=== PATIENT | male | born 1935 | race Caucasian/White ===

== ENCOUNTER 2016-07-04 22:42 | Inpatient (IN) | payer MEDICARE, BC ==
[~2016-07-04] VITALS: Wt 115.1 kg
[2016-07-05] MEDS ORDERED: TYLENOL 500MG500 MG PO (00:18)
[2016-07-05] MEDS ORDERED: FISH OIL 1000MG1 CAP PO (00:19)
[2016-07-05] MEDS ORDERED: MEVACOR40 MG PO (00:20)
[2016-07-05] MEDS ORDERED: MULTI VITAMINS1 TAB PO (00:21)
[2016-07-05] MEDS ORDERED: SYNTHROID0.075 MG/T PO (00:21)
[2016-07-05] MEDS ORDERED: ASPIRIN 81M81 MG/TA2 PO (00:23)
[2016-07-05] MEDS ORDERED: COZAAR 25MG25 MG/TAB PO (00:23)
[2016-07-05] MEDS ORDERED: IMDUR 60MG60 MG/TAB PO (00:24)
[2016-07-05] MEDS ORDERED: DIABETA 5MG5 MG/TAB PO (00:25)
[2016-07-05] MEDS ORDERED: GLUCOPHAGE500 MG/TAB PO (00:25)
[2016-07-05 01:23] VITALS: BP 133/74; PULSE 64; TEMP 98.5
[2016-07-05 04:11] VITALS: BP 140/92; PULSE 58; TEMP 98.2
[2016-07-05 07:51] LABS: BASO % 0.5 % (0.0-2.0); EOS # 0.1 (0.0-0.7); EOS % 2.3 % (0-4.0); GRAN # 2.8 (1.4-6.5); GRAN % 64.4 % (42.2-75.2); LYMPH # 0.9 (1.2-3.4); LYMPH % 20.5 % (20.0-51.0); MEAN CELL VOLUME 94 fl (80.0-100.0); MEAN CORPUSCULAR HEMOGLOBIN 31 pg (27.0-31.0); MEAN CORPUSCULAR HGB CONC 33 g/dl (33.0-37.0); MEAN PLATELET VOLUME 8.8 fl (7.4-10.4); MONO # 0.5 (0.1-0.6); MONO % 12.1 % (1.7-9.3); PLATELET COUNT 246 K/mm3 (130-400); RED BLOOD COUNT 3.89 M/mm3 (4.20-5.60); REDCELL DISTRIBUTION WIDTH-CV 12.7 % (11.5-14.5); WHITE BLOOD COUNT 4.4 K/mm3 (4.8-10.8)
[2016-07-05 07:58] LABS: HEMATOCRIT 36.4 % (42.0-52.0)
[2016-07-05 08:35] VITALS: BP 108/63; PULSE 64; TEMP 97.6
[2016-07-05 09:40] LABS: ADJUSTED CALCIUM 9.3 mg/dL (8.4-10.2); ALBUMIN 3.7 gm/dL (3.5-5.0); BILIRUBIN,TOTAL 0.8 mg/dL (0.0-1.0); CALCIUM 9.1 mg/dL (8.4-10.2); CREATININE, serum 1.11 mg/dL (0.66-1.25); POTASSIUM 4.2 mmol/L (3.4-5.0)
[2016-07-05 11:50] VITALS: BP 120/61; PULSE 62; TEMP 97.5
[2016-07-05 15:38] VITALS: BP 130/64; PULSE 60; TEMP 98.2
[2016-07-05 21:27] VITALS: BP 129/52; PULSE 53; TEMP 97.7
[2016-07-06 01:35] VITALS: BP 132/50; PULSE 61; TEMP 98.5
[2016-07-06 05:36] VITALS: BP 128/66; PULSE 62; TEMP 97.8
[2016-07-06 07:41] VITALS: BP 125/54; PULSE 59; TEMP 97.9
[2016-07-06 12:37] VITALS: BP 125/64; PULSE 62
[2016-07-06 13:11] LABS: FACTOR V LEIDEN MUTATION B Heterozygous (Negative)
[2016-07-06] MEDS ORDERED: LOVENOX 100100 MG/ML SQ (13:35)
[2016-07-08 10:40] LABS: PROTEIN C ACTIVITY 85 % (70-150)
[2016-07-08 10:43] LABS: PROTEIN S ACTIVITY 95 % (65-149)
[2016-07-08 17:54] LABS: .ANTICARDIOLIPIN IGG <9.4 GPL (()); .ANTICARDIOLIPIN IGM <9.4 MPL (())
[2016-07-09 11:01] LABS: LUPUS ANTICOAGULANT INR 1.1 (()); LUPUS ANTICOAGULANT PTT 33 sec (26 - 36)
== END 2016-07-06 14:25 | disposition home or self-care (01) | DRG 299 ==
LOC: MEDICAL 22:42
PROVIDERS: Internal Medicine
DX: I82.431 Acute embolism and thrombosis of right popliteal vein (principal); I26.99 Other pulmonary embolism without acute cor pulmonale; I82.411 Acute embolism and thrombosis of right femoral vein; E11.40 Type 2 diabetes mellitus with diabetic neuropathy, unspecified; R26.81 Unsteadiness on feet; E03.9 Hypothyroidism, unspecified; J44.9 Chronic obstructive pulmonary disease, unspecified; E66.9 Obesity, unspecified; Z96.651 Presence of right artificial knee joint; Z95.1 Presence of aortocoronary bypass graft; Z85.46 Personal history of malignant neoplasm of prostate; Z91.81 History of falling; Z79.4 Long term (current) use of insulin
CPT/HCPCS: 99223-AI; 99238; G0103; J1650

== ENCOUNTER → 2016-07-22 | Outpatient (CLI) | payer MEDICARE, BC ==
[~2016-07-22] MED LIST: AREDS PO; ASPIRIN 81M81 MG/TA2 PO; CITRUCEL POWDE850 GM PO; COLACE 100100 MG/CAP PO; COZAAR 25MG25 MG/TAB PO; DIABETA 5MG5 MG/TAB PO; ELIQUIS 5MG PO; EPA FISH OIL1 SGL PO; FISH OIL 1000MG1 CAP PO; GLUCOPHAGE500 MG/TAB PO; IMDUR 60MG60 MG/TAB PO; LOVENOX 100100 MG/ML SQ; MEVACOR40 MG PO; MULTI VITAMINS1 TAB PO; NORCO 5/325 PO; PRESERVISION1 SGL PO; ROXICODONE 55 MG/TAB PO; SYNTHROID0.075 MG/T PO; TYLENOL 500MG500 MG PO
== END ==
LOC: COL.RAD 10:26
DX: K57.32 Diverticulitis of large intestine without perforation or abscess without bleeding (principal); K63.89 Other specified diseases of intestine
CPT/HCPCS: Q9967

== ENCOUNTER 2016-08-19 11:53 | Inpatient (IN) | payer MEDICARE, BC ==
[~2016-08-19] VITALS: Ht 190.5 cm; Wt 114.2 kg
[~2016-08-19 11:53] MED LIST changes: -AREDS PO; -CITRUCEL POWDE850 GM PO; -COLACE 100100 MG/CAP PO; -ELIQUIS 5MG PO; -EPA FISH OIL1 SGL PO; -NORCO 5/325 PO; -PRESERVISION1 SGL PO; -ROXICODONE 55 MG/TAB PO
[2016-09-03] VITALS (10 sets, daily range): BP systolic 111–156; BP diastolic 58–86; PULSE 58–73; TEMP 97.2
[2016-09-03] MEDS ORDERED: GLUCOPHAGE500 MG/TAB PO (11:40)
[2016-09-03] MEDS ORDERED: DIABETA 5MG5 MG/TAB PO (11:41)
[2016-09-03] MEDS ORDERED: MEVACOR40 MG PO (11:42)
[2016-09-03] MEDS ORDERED: IMDUR 60MG60 MG/TAB PO (11:46)
[2016-09-03] MEDS ORDERED: SYNTHROID0.075 MG/T PO (11:46)
[2016-09-03] MEDS ORDERED: EPA FISH OIL1 SGL PO (11:47)
[2016-09-03] MEDS ORDERED: MULTI VITAMINS1 TAB PO (11:57)
[2016-09-03] MEDS ORDERED: TYLENOL 500MG500 MG PO (11:58)
[2016-09-03] MEDS ORDERED: AREDS PO (11:59)
[2016-09-03] MEDS ORDERED: COZAAR 25MG25 MG/TAB PO (11:59)
[2016-09-03] MEDS ORDERED: ELIQUIS 5MG PO (12:02)
[2016-09-03] MEDS ORDERED: CITRUCEL POWDE850 GM PO (12:03)
[2016-09-03 12:16] LABS: CALCIUM 8.9 mg/dL (8.4-10.2); CREATININE, serum 1.09 mg/dL (0.66-1.25); POTASSIUM 4.4 mmol/L (3.4-5.0)
[2016-09-04 06:32] VITALS: BP 119/54; PULSE 63; TEMP 98.5
[2016-09-04 08:08] LABS: HEMATOCRIT 35.4 % (42.0-52.0); HEMOGLOBIN 11.5 g/dl (13.5-18.0)
[2016-09-04 08:28] LABS: CALCIUM 7.6 mg/dL (8.4-10.2); CREATININE, serum 1.26 mg/dL (0.66-1.25); POTASSIUM 4.4 mmol/L (3.4-5.0)
[2016-09-04 10:28] VITALS: BP 120/53; PULSE 58; TEMP 97.9
[2016-09-04 14:02] VITALS: BP 116/51; PULSE 64; TEMP 97.7
[2016-09-04 18:00] VITALS: BP 126/62; PULSE 64; TEMP 98.7
[2016-09-04 21:52] VITALS: BP 118/53; PULSE 68; TEMP 98.5
[2016-09-05 01:29] VITALS: BP 151/65; PULSE 87; TEMP 98.3
[2016-09-05 05:22] VITALS: BP 151/71; PULSE 61; TEMP 98.3
[2016-09-05 07:19] LABS: HEMATOCRIT 32.7 % (42.0-52.0); HEMOGLOBIN 10.6 g/dl (13.5-18.0)
[2016-09-05 07:24] LABS: CALCIUM 7.9 mg/dL (8.4-10.2); CREATININE, serum 1.05 mg/dL (0.66-1.25); POTASSIUM 4.1 mmol/L (3.4-5.0)
[2016-09-05 11:27] VITALS: BP 127/60; PULSE 58; TEMP 97.6
[2016-09-05 13:46] VITALS: BP 121/65; PULSE 68; TEMP 98.3
[2016-09-05 17:19] VITALS: BP 113/57; PULSE 65; TEMP 98
[2016-09-05 21:46] VITALS: BP 132/69; PULSE 67; TEMP 97.8
[2016-09-06 05:10] VITALS: BP 125/63; PULSE 70; TEMP 97.7
[2016-09-06 07:19] LABS: HEMATOCRIT 32.1 % (42.0-52.0); HEMOGLOBIN 10.6 g/dl (13.5-18.0)
[2016-09-06 07:30] LABS: CALCIUM 8.1 mg/dL (8.4-10.2); CREATININE, serum 0.91 mg/dL (0.66-1.25); POTASSIUM 4.3 mmol/L (3.4-5.0)
[2016-09-06 09:47] VITALS: BP 166/66; PULSE 68; TEMP 97.4
[2016-09-06 14:22] VITALS: BP 122/68; PULSE 92; TEMP 97.4
[2016-09-06 17:39] VITALS: BP 122/57; PULSE 71; TEMP 98.3
[2016-09-06 21:39] VITALS: BP 123/60; PULSE 71; TEMP 97.8
[2016-09-07 05:42] VITALS: BP 141/85; PULSE 58; TEMP 98.4
[2016-09-07 10:15] VITALS: BP 115/72; PULSE 69; TEMP 98.1
[2016-09-07] MEDS ORDERED: ROXICODONE 55 MG/TAB PO (14:25)
[2016-09-07] MEDS ORDERED: COLACE 100100 MG/CAP PO (14:26)
== END 2016-09-07 15:15 | disposition home or self-care (01) | DRG 330 ==
LOC: SURG 09-03 09:45 → INPTSU 09-03 09:45 → SURG 09-03 12:00
PROVIDERS: Nurse Anesthetist, Certified Registered; Surgery
PROC: 8E0W4CZ Robotic Assisted Procedure of Trunk Region, Percutaneous Endoscopic Approach (ICD-10-PCS; 2016-09-03)
PROC: 0DTL4ZZ Resection of Transverse Colon, Percutaneous Endoscopic Approach (ICD-10-PCS; principal; 2016-09-03 12:00)
DX: C18.4 Malignant neoplasm of transverse colon (principal); C77.2 Secondary and unspecified malignant neoplasm of intra-abdominal lymph nodes; I25.10 Atherosclerotic heart disease of native coronary artery without angina pectoris; Z95.1 Presence of aortocoronary bypass graft; Z86.711 Personal history of pulmonary embolism; Z79.01 Long term (current) use of anticoagulants; E11.9 Type 2 diabetes mellitus without complications
CPT/HCPCS: A4315; A9284; J0690; J1170; J1644; J2270; J2405; J2704; J2710; J3010; J7030

== ENCOUNTER 2016-09-27 05:54 | Day surgery (SDC) | payer MEDICARE, BC ==
[~2016-09-27] VITALS: Ht 190.5 cm; Wt 111.5 kg
[~2016-09-27 05:54] MED LIST changes: +AREDS PO; +CITRUCEL POWDE850 GM PO; +COLACE 100100 MG/CAP PO; +ELIQUIS 5MG PO; +EPA FISH OIL1 SGL PO; +ROXICODONE 55 MG/TAB PO
[2016-09-27 06:45] VITALS: BP 136/71; PULSE 61; TEMP 98.4
[2016-09-27] MEDS ORDERED: PRESERVISION1 SGL PO (06:56)
[2016-09-27 09:21] VITALS: BP 116/65; PULSE 69; TEMP 97.2
[2016-09-27 09:36] VITALS: BP 120/64; PULSE 62
[2016-09-27 09:51] VITALS: BP 108/64; PULSE 73
[2016-09-27] MEDS ORDERED: NORCO 5/325 PO (09:55)
[2016-09-27 10:06] VITALS: BP 115/70; PULSE 64
== END 2016-09-27 10:45 | disposition home or self-care (01) ==
LOC: SDCO 05:54
DX: C18.4 Malignant neoplasm of transverse colon (principal); C77.2 Secondary and unspecified malignant neoplasm of intra-abdominal lymph nodes; Z90.49 Acquired absence of other specified parts of digestive tract; M19.90 Unspecified osteoarthritis, unspecified site; I25.10 Atherosclerotic heart disease of native coronary artery without angina pectoris; Z95.1 Presence of aortocoronary bypass graft; I10 Essential (primary) hypertension; E11.40 Type 2 diabetes mellitus with diabetic neuropathy, unspecified; E03.9 Hypothyroidism, unspecified; Z86.711 Personal history of pulmonary embolism; Z86.718 Personal history of other venous thrombosis and embolism; Z90.79 Acquired absence of other genital organ(s)
CPT/HCPCS: C1788; J0690; J1644; J2704; J3010; J7030

== ENCOUNTER 2017-06-05 15:37 | Inpatient (IN) | payer MEDICARE, BC ==
[~2017-06-05] VITALS: Ht 188 cm; Wt 96.0 kg
[~2017-06-05 15:37] MED LIST changes: +LOMOTIL 0.025 M1 TAB PO; +NORCO 5/325 PO; +PRESERVISION1 SGL PO
[2017-06-18] VITALS (12 sets, daily range): BP systolic 94–143; BP diastolic 50–67; PULSE 42–73; TEMP 96.9–98.6
[2017-06-18] MEDS ORDERED: MAGNESIUM250 M1 PO (07:24)
[2017-06-18] MEDS ORDERED: ICAPS AREDS FO1 EACH PO (07:26)
[2017-06-18] MEDS ORDERED: ULTRAM 50MG TAB50 MG PO (07:26)
[2017-06-18] MEDS ORDERED: TYLENOL PM EXTR1 TA1 PO (07:27)
[2017-06-19] VITALS (7 sets, daily range): BP systolic 102–117; BP diastolic 48–59; PULSE 63–75; TEMP 97.5–98.7
[2017-06-19 07:59] LABS: HEMATOCRIT 30.5 % (42.0-52.0); HEMOGLOBIN 9.8 g/dl (13.5-18.0)
[2017-06-19 08:03] LABS: CREATININE, serum 1.24 mg/dL (0.66-1.25)
[2017-06-20 01:38] VITALS: BP 113/61; PULSE 77; TEMP 97.9
[2017-06-20 05:09] VITALS: BP 110/62; PULSE 73; TEMP 98.2
[2017-06-20 10:26] VITALS: BP 128/62; PULSE 77; TEMP 97.6
[2017-06-20 13:18] VITALS: BP 115/56; PULSE 70; TEMP 97.9
[2017-06-20 17:47] VITALS: BP 134/52; PULSE 75; TEMP 98.3
[2017-06-20 22:15] VITALS: BP 105/58; PULSE 69; TEMP 97.8
[2017-06-21 02:07] VITALS: BP 124/65; PULSE 66; TEMP 97.6
[2017-06-21 04:57] VITALS: BP 127/59; PULSE 70; TEMP 97.8
[2017-06-21 09:35] VITALS: BP 132/61; PULSE 76; TEMP 98.3
[2017-06-21 13:38] VITALS: BP 128/67; PULSE 71; TEMP 97.9
[2017-06-21 16:58] VITALS: BP 135/62; PULSE 70; TEMP 97.5
[2017-06-21 21:37] VITALS: BP 146/74; PULSE 72; TEMP 97.6
[2017-06-22 02:51] VITALS: BP 153/83; PULSE 79; TEMP 97.9
[2017-06-22 05:28] VITALS: BP 164/86; PULSE 89; TEMP 97.9
[2017-06-22 08:17] LABS: BASO % 0.3 % (0.0-2.0); GRAN # 2.9 (1.4-6.5); GRAN % 83.7 % (42.2-75.2); LYMPH # 0.2 (1.2-3.4); LYMPH % 4.6 % (20.0-51.0); MEAN CELL VOLUME 94 fl (80.0-100.0); MEAN CORPUSCULAR HGB CONC 32 g/dl (33.0-37.0); MEAN PLATELET VOLUME 8.9 fl (7.4-10.4); MONO # 0.4 (0.1-0.6); MONO % 11.1 % (1.7-9.3); PLATELET COUNT 195 K/mm3 (130-400); RED BLOOD COUNT 3.71 M/mm3 (4.20-5.60); REDCELL DISTRIBUTION WIDTH-CV 13.3 % (11.5-14.5)
[2017-06-22 08:19] LABS: HEMOGLOBIN 11.3 g/dl (13.5-18.0); MEAN CORPUSCULAR HEMOGLOBIN 30 pg (27.0-31.0)
[2017-06-22 08:36] LABS: CALCIUM 8.8 mg/dL (8.4-10.2); CREATININE, serum 0.94 mg/dL (0.66-1.25); POTASSIUM 3.9 mmol/L (3.4-5.0)
[2017-06-22 09:54] VITALS: BP 178/75; PULSE 73; TEMP 98.4
[2017-06-22 13:51] VITALS: BP 162/67; PULSE 76; TEMP 98
[2017-06-22 17:51] VITALS: BP 142/60; PULSE 72; TEMP 97.2
[2017-06-22 22:39] VITALS: BP 148/73; PULSE 79; TEMP 97.8
[2017-06-23] VITALS (188 sets, daily range): BP systolic 125–168; BP diastolic 65–83; PULSE 66–80; TEMP 97.4–98; O2SAT 88–100
[2017-06-23 06:28] LABS: MEAN CELL VOLUME 95 fl (80.0-100.0); MEAN CORPUSCULAR HGB CONC 33 g/dl (33.0-37.0); MEAN PLATELET VOLUME 9.1 fl (7.4-10.4); PLATELET COUNT 184 K/mm3 (130-400); RED BLOOD COUNT 3.61 M/mm3 (4.20-5.60); REDCELL DISTRIBUTION WIDTH-CV 13.2 % (11.5-14.5)
[2017-06-23 06:34] LABS: HEMATOCRIT 34.2 % (42.0-52.0); HEMOGLOBIN 11.1 g/dl (13.5-18.0); MEAN CORPUSCULAR HEMOGLOBIN 31 pg (27.0-31.0)
[2017-06-23 06:42] LABS: BILIRUBIN,TOTAL 0.5 mg/dL (0.0-1.0); CALCIUM 8.5 mg/dL (8.4-10.2); CREATININE, serum 1.03 mg/dL (0.66-1.25); PHOSPHOROUS 1.7 mg/dL (2.5-4.5); POTASSIUM 3.6 mmol/L (3.4-5.0); TOTAL PROTEIN 5.9 gm/dL (6.4-8.2)
[2017-06-23 06:49] LABS: PRE ALBUMIN 8.7 mg/dL (17.6-36.0)
[2017-06-23 07:06] LABS: BAND 55 % (0-10); LYMPHOCYTE 3 % (20.0-51.0); NEUTROPHILS 23 % (42.0-75.2)
[2017-06-23 07:07] LABS: ANISOCYTOSIS 1+; PLATELET ESTIMATE NORMAL (NORMAL)
[2017-06-23 22:31] LABS: BASO % 0.4 % (0.0-2.0); GRAN # 2.2 (1.4-6.5); GRAN % 85.7 % (42.2-75.2); LYMPH # 0.1 (1.2-3.4); LYMPH % 3.6 % (20.0-51.0); MEAN CELL VOLUME 94 fl (80.0-100.0); MEAN CORPUSCULAR HGB CONC 33 g/dl (33.0-37.0); MEAN PLATELET VOLUME 8.8 fl (7.4-10.4); MONO # 0.2 (0.1-0.6); MONO % 9.5 % (1.7-9.3); PLATELET COUNT 161 K/mm3 (130-400); RED BLOOD COUNT 3.53 M/mm3 (4.20-5.60); REDCELL DISTRIBUTION WIDTH-CV 13.2 % (11.5-14.5)
[2017-06-23 22:33] LABS: HEMATOCRIT 33.1 % (42.0-52.0); HEMOGLOBIN 10.8 g/dl (13.5-18.0); MEAN CORPUSCULAR HEMOGLOBIN 31 pg (27.0-31.0)
[2017-06-23 22:42] LABS: ALBUMIN 2.7 gm/dL (3.5-5.0); BILIRUBIN,TOTAL 0.5 mg/dL (0.0-1.0); CALCIUM 7.9 mg/dL (8.4-10.2); CREATININE, serum 1.01 mg/dL (0.66-1.25); MAGNESIUM 1.9 mg/dL (1.6-2.3); POTASSIUM 3.6 mmol/L (3.4-5.0); TOTAL PROTEIN 5.5 gm/dL (6.4-8.2)
[2017-06-23 22:47] LABS: ARTERIAL BLD GAS O2 SATURATION 91.9 % (92-100); ARTERIAL BLD GAS TCO2 CT 34.6; ARTERIAL BLOOD GAS BASE EXCESS 8.3 (-2-2); ARTERIAL BLOOD GAS HCO3 33.1 meq/L (22-26); ARTERIAL BLOOD GAS PO2 62.5 mmHg (80-100); ARTERIAL BLOOD GAS pH 7.47 (7.35-7.45)
[2017-06-23 23:12] LABS: TSH w REFLEX 2.89 uIU/mL (0.465-4.680)
[2017-06-24] VITALS (1282 sets, daily range): BP systolic 115–157; BP diastolic 1–91; PULSE 71–78; TEMP 97.1–98.5; O2SAT 81–100
[2017-06-24 06:26] LABS: CALCIUM 7.7 mg/dL (8.4-10.2); CREATININE, serum 1.06 mg/dL (0.66-1.25); PHOSPHOROUS 2.5 mg/dL (2.5-4.5); POTASSIUM 3.7 mmol/L (3.4-5.0)
[2017-06-24 09:35] LABS: MEAN CELL VOLUME 96 fl (80.0-100.0); MEAN CORPUSCULAR HGB CONC 32 g/dl (33.0-37.0); MEAN PLATELET VOLUME 9.7 fl (7.4-10.4); PLATELET COUNT 183 K/mm3 (130-400); RED BLOOD COUNT 3.36 M/mm3 (4.20-5.60); REDCELL DISTRIBUTION WIDTH-CV 13.3 % (11.5-14.5)
[2017-06-24 09:36] LABS: HEMATOCRIT 32.3 % (42.0-52.0); HEMOGLOBIN 10.2 g/dl (13.5-18.0); MEAN CORPUSCULAR HEMOGLOBIN 30 pg (27.0-31.0)
[2017-06-24 14:12] LABS: BAND 54 % (0-10); LYMPHOCYTE 12 % (20.0-51.0); METAMYELOCYTE 2 % (0-0); NEUTROPHILS 31 % (42.0-75.2); PLATELET ESTIMATE NORMAL (NORMAL)
[2017-06-24 14:13] LABS: HYPOCHROMIA 1+
[2017-06-25] VITALS (653 sets, daily range): BP systolic 130–165; BP diastolic 41–78; PULSE 60–75; TEMP 97.2–98.1; O2SAT 65–100
[2017-06-25 05:45] LABS: MEAN CELL VOLUME 97 fl (80.0-100.0); MEAN CORPUSCULAR HGB CONC 31 g/dl (33.0-37.0); MEAN PLATELET VOLUME 9.3 fl (7.4-10.4); PLATELET COUNT 172 K/mm3 (130-400); RED BLOOD COUNT 3.29 M/mm3 (4.20-5.60); REDCELL DISTRIBUTION WIDTH-CV 13.2 % (11.5-14.5)
[2017-06-25 05:46] LABS: HEMATOCRIT 31.8 % (42.0-52.0); HEMOGLOBIN 9.8 g/dl (13.5-18.0); MEAN CORPUSCULAR HEMOGLOBIN 30 pg (27.0-31.0)
[2017-06-25 06:15] LABS: CALCIUM 7.7 mg/dL (8.4-10.2); CREATININE, serum 1.04 mg/dL (0.66-1.25); MAGNESIUM 2.2 mg/dL (1.6-2.3); POTASSIUM 3.4 mmol/L (3.4-5.0)
[2017-06-25 06:22] LABS: PRE ALBUMIN 8.1 mg/dL (17.6-36.0)
[2017-06-25 06:32] LABS: BAND 16 % (0-10); LYMPHOCYTE 10 % (20.0-51.0); MYELOCYTE 2 % (0-0); NEUTROPHILS 64 % (42.0-75.2)
[2017-06-25 06:34] LABS: ANISOCYTOSIS 1+; PLATELET ESTIMATE NORMAL (NORMAL)
[2017-06-25 08:21] LABS: PATHOLOGY DIFF REVIEW OK
[2017-06-26 00:19] VITALS: BP 142/59; PULSE 35; PULSE 62; TEMP 97.5
[2017-06-26 04:25] VITALS: BP 147/59; PULSE 62; TEMP 98.2
[2017-06-26 06:56] LABS: CALCIUM 7.6 mg/dL (8.4-10.2); CREATININE, serum 1.02 mg/dL (0.66-1.25); MAGNESIUM 2.2 mg/dL (1.6-2.3); PHOSPHOROUS 2.5 mg/dL (2.5-4.5); POTASSIUM 3.4 mmol/L (3.4-5.0)
[2017-06-26 07:49] LABS: MEAN CELL VOLUME 96 fl (80.0-100.0); MEAN CORPUSCULAR HGB CONC 32 g/dl (33.0-37.0); MEAN PLATELET VOLUME 9.6 fl (7.4-10.4); PLATELET COUNT 196 K/mm3 (130-400); RED BLOOD COUNT 3.34 M/mm3 (4.20-5.60); REDCELL DISTRIBUTION WIDTH-CV 13.2 % (11.5-14.5)
[2017-06-26 07:54] LABS: HEMATOCRIT 31.9 % (42.0-52.0); HEMOGLOBIN 10.2 g/dl (13.5-18.0); MEAN CORPUSCULAR HEMOGLOBIN 31 pg (27.0-31.0)
[2017-06-26 08:55] LABS: BAND 14 % (0-10); LYMPHOCYTE 10 % (20.0-51.0); NEUTROPHILS 75 % (42.0-75.2)
[2017-06-26 10:46] VITALS: BP 134/63; PULSE 79; TEMP 97.3
[2017-06-26 17:44] VITALS: BP 150/62; PULSE 94; TEMP 98.1
[2017-06-26 21:47] VITALS: BP 136/66; PULSE 61; TEMP 97.7
[2017-06-27 00:51] VITALS: BP 154/59; PULSE 68; TEMP 97.5
[2017-06-27 05:42] VITALS: BP 148/64; PULSE 32; PULSE 56; TEMP 97.3
[2017-06-27 06:34] LABS: MEAN CELL VOLUME 97 fl (80.0-100.0); MEAN CORPUSCULAR HGB CONC 31 g/dl (33.0-37.0); MEAN PLATELET VOLUME 9.5 fl (7.4-10.4); PLATELET COUNT 242 K/mm3 (130-400); RED BLOOD COUNT 3.64 M/mm3 (4.20-5.60); REDCELL DISTRIBUTION WIDTH-CV 13.1 % (11.5-14.5)
[2017-06-27 06:40] LABS: HEMATOCRIT 35.2 % (42.0-52.0); MEAN CORPUSCULAR HEMOGLOBIN 30 pg (27.0-31.0)
[2017-06-27 06:47] LABS: CALCIUM 7.6 mg/dL (8.4-10.2); CREATININE, serum 1.02 mg/dL (0.66-1.25); MAGNESIUM 2.2 mg/dL (1.6-2.3); PHOSPHOROUS 2.8 mg/dL (2.5-4.5); POTASSIUM 3.5 mmol/L (3.4-5.0)
[2017-06-27 08:02] LABS: BAND 7 % (0-10); EOSINOPHIL 4 % (0-4); LYMPHOCYTE 11 % (20.0-51.0); NEUTROPHILS 77 % (42.0-75.2)
[2017-06-27 08:03] LABS: PLATELET ESTIMATE NORMAL (NORMAL); POLYCHROMASIA 1+
[2017-06-27 10:35] VITALS: BP 125/63; PULSE 59; TEMP 97.3
[2017-06-27 14:05] VITALS: BP 153/63; PULSE 76; TEMP 97.5
[2017-06-27 17:31] VITALS: BP 134/55; PULSE 57; TEMP 98.4
[2017-06-27 21:30] VITALS: BP 132/69; PULSE 59; TEMP 97.9
[2017-06-28 01:03] VITALS: BP 122/63; PULSE 52; TEMP 97.5
[2017-06-28 07:09] LABS: MEAN CELL VOLUME 96 fl (80.0-100.0); MEAN CORPUSCULAR HGB CONC 32 g/dl (33.0-37.0); MEAN PLATELET VOLUME 9.8 fl (7.4-10.4); PLATELET COUNT 245 K/mm3 (130-400); RED BLOOD COUNT 3.41 M/mm3 (4.20-5.60); REDCELL DISTRIBUTION WIDTH-CV 13.2 % (11.5-14.5)
[2017-06-28 07:15] LABS: HEMATOCRIT 32.6 % (42.0-52.0); HEMOGLOBIN 10.3 g/dl (13.5-18.0); MEAN CORPUSCULAR HEMOGLOBIN 30 pg (27.0-31.0)
[2017-06-28 07:24] LABS: CALCIUM 7.6 mg/dL (8.4-10.2); CREATININE, serum 1.02 mg/dL (0.66-1.25); MAGNESIUM 2.3 mg/dL (1.6-2.3); POTASSIUM 3.9 mmol/L (3.4-5.0)
[2017-06-28 08:52] LABS: BAND 3 % (0-10); EOSINOPHIL 3 % (0-4); HYPOCHROMIA 2+; LYMPHOCYTE 9 % (20.0-51.0); METAMYELOCYTE 1 % (0-0); NEUTROPHILS 77 % (42.0-75.2); PLATELET ESTIMATE NORMAL (NORMAL)
[2017-06-28 10:20] VITALS: BP 97/47; PULSE 56; TEMP 97.8
[2017-06-28 13:10] VITALS: BP 99/60; PULSE 55; TEMP 97.3
[2017-06-28 17:17] VITALS: BP 94/56; PULSE 73; TEMP 98
[2017-06-28 22:29] VITALS: BP 107/61; PULSE 62; TEMP 97.9
[2017-06-29 01:04] VITALS: BP 108/56; PULSE 63; TEMP 97.6
[2017-06-29 06:33] VITALS: BP 108/54; PULSE 57; TEMP 97.5
[2017-06-29 09:31] VITALS: BP 97/48; PULSE 61; TEMP 97.4
[2017-06-29 14:06] VITALS: BP 108/56; PULSE 58; TEMP 98
[2017-06-29 17:12] VITALS: BP 99/54; PULSE 60
[2017-06-29 22:46] VITALS: BP 122/59; PULSE 92; TEMP 97.5
[2017-06-30 02:15] VITALS: BP 127/55; PULSE 58; TEMP 97.3
[2017-06-30 06:27] VITALS: BP 119/44; PULSE 66; TEMP 97.4
[2017-06-30 06:44] LABS: MEAN CELL VOLUME 96 fl (80.0-100.0); MEAN CORPUSCULAR HGB CONC 32 g/dl (33.0-37.0); MEAN PLATELET VOLUME 10.1 fl (7.4-10.4); PLATELET COUNT 228 K/mm3 (130-400); RED BLOOD COUNT 2.97 M/mm3 (4.20-5.60); REDCELL DISTRIBUTION WIDTH-CV 13.2 % (11.5-14.5)
[2017-06-30 06:53] LABS: HEMATOCRIT 28.5 % (42.0-52.0); MEAN CORPUSCULAR HEMOGLOBIN 30 pg (27.0-31.0)
[2017-06-30 06:58] LABS: CALCIUM 7.7 mg/dL (8.4-10.2); CREATININE, serum 1.06 mg/dL (0.66-1.25); MAGNESIUM 1.8 mg/dL (1.6-2.3); PHOSPHOROUS 3.2 mg/dL (2.5-4.5); POTASSIUM 4.4 mmol/L (3.4-5.0)
[2017-06-30 09:10] LABS: ALBUMIN 2.3 gm/dL (3.5-5.0); BILIRUBIN,TOTAL 0.2 mg/dL (0.0-1.0); CALCIUM 7.7 mg/dL (8.4-10.2); CREATININE, serum 1.06 mg/dL (0.66-1.25); POTASSIUM 4.4 mmol/L (3.4-5.0); TOTAL PROTEIN 5.1 gm/dL (6.4-8.2)
[2017-06-30 09:17] VITALS: BP 104/53; PULSE 57; TEMP 97.4
[2017-06-30 13:08] VITALS: BP 112/47; PULSE 124; PULSE 61
[2017-06-30 17:16] VITALS: BP 114/67; PULSE 66; TEMP 97.5
[2017-06-30 21:31] VITALS: BP 110/57; PULSE 64; TEMP 98.8
[2017-07-01 01:30] VITALS: BP 97/52; PULSE 51; TEMP 98.3
[2017-07-01 06:11] VITALS: BP 97/52; PULSE 53; TEMP 97.6
[2017-07-01 10:28] VITALS: BP 104/53; PULSE 60; TEMP 97.3
[2017-07-01 14:08] VITALS: BP 108/53; PULSE 114; TEMP 98.4
[2017-07-01 17:40] VITALS: BP 123/62; PULSE 57; TEMP 97.7
[2017-07-01 21:51] VITALS: BP 101/53; PULSE 58; TEMP 98.5
[2017-07-02 02:42] VITALS: BP 104/56; PULSE 58; TEMP 98.6
[2017-07-02 04:58] VITALS: BP 105/53; PULSE 55; TEMP 97.4
[2017-07-02 06:40] LABS: MEAN CELL VOLUME 96 fl (80.0-100.0); MEAN CORPUSCULAR HGB CONC 32 g/dl (33.0-37.0); PLATELET COUNT 269 K/mm3 (130-400); RED BLOOD COUNT 2.76 M/mm3 (4.20-5.60); REDCELL DISTRIBUTION WIDTH-CV 13.6 % (11.5-14.5)
[2017-07-02 06:59] LABS: HEMATOCRIT 26.5 % (42.0-52.0); HEMOGLOBIN 8.4 g/dl (13.5-18.0); MEAN CORPUSCULAR HEMOGLOBIN 30 pg (27.0-31.0)
[2017-07-02 07:03] LABS: ALBUMIN 2.4 gm/dL (3.5-5.0); BILIRUBIN,TOTAL 0.4 mg/dL (0.0-1.0); CALCIUM 7.6 mg/dL (8.4-10.2); CREATININE, serum 1.11 mg/dL (0.66-1.25); MAGNESIUM 1.9 mg/dL (1.6-2.3); PHOSPHOROUS 2.9 mg/dL (2.5-4.5); TOTAL PROTEIN 5.2 gm/dL (6.4-8.2)
[2017-07-02 07:10] LABS: PRE ALBUMIN 18.4 mg/dL (17.6-36.0)
[2017-07-02 08:03] LABS: BAND 6 % (0-10); EOSINOPHIL 1 % (0-4); LYMPHOCYTE 18 % (20.0-51.0); METAMYELOCYTE 1 % (0-0); MYELOCYTE 2 % (0-0); NEUTROPHILS 62 % (42.0-75.2); PLATELET ESTIMATE NORMAL (NORMAL)
[2017-07-02 08:04] LABS: ANISOCYTOSIS 1+
[2017-07-02 09:15] VITALS: BP 92/50; PULSE 59; TEMP 97.7
[2017-07-02] MEDS ORDERED: TOPROL XL 50MG50 MG PO (10:16)
[2017-07-02 12:00] VITALS: BP 92/50; PULSE 59; TEMP 97.7
== END 2017-07-02 13:15 | disposition swing bed (61) | DRG 329 ==
LOC: INPTSU 06-18 05:45 → SURG 06-18 05:45 → ICU 06-18 05:45 → SURG 06-18 08:00 → ICU 06-23 21:29 → SURG 06-25 10:26
PROVIDERS: Nurse Practitioner; Nurse Practitioner Family; Surgery
PROC: 0DBB0ZZ Excision of Ileum, Open Approach (ICD-10-PCS; principal; 2017-06-18 08:00)
PROC: 0DBN0ZZ Excision of Sigmoid Colon, Open Approach (ICD-10-PCS; 2017-06-23)
PROC: 0DJD4ZZ Inspection of Lower Intestinal Tract, Percutaneous Endoscopic Approach (ICD-10-PCS; 2017-06-23)
PROC: 0DBB0ZZ Excision of Ileum, Open Approach (ICD-10-PCS; 2017-06-23 18:00)
DX: Z43.2 Encounter for attention to ileostomy (principal); K55.039 Acute (reversible) ischemia of large intestine, extent unspecified; K63.1 Perforation of intestine (nontraumatic); C18.4 Malignant neoplasm of transverse colon; C77.2 Secondary and unspecified malignant neoplasm of intra-abdominal lymph nodes; I47.1 Supraventricular tachycardia; K91.31 Postprocedural partial intestinal obstruction; E44.0 Moderate protein-calorie malnutrition; R18.8 Other ascites; I10 Essential (primary) hypertension; E11.42 Type 2 diabetes mellitus with diabetic polyneuropathy; I25.10 Atherosclerotic heart disease of native coronary artery without angina pectoris; Z95.1 Presence of aortocoronary bypass graft; Z86.711 Personal history of pulmonary embolism; Z79.01 Long term (current) use of anticoagulants; E87.6 Hypokalemia; E11.65 Type 2 diabetes mellitus with hyperglycemia
CPT/HCPCS: 99232-AI; A4217; A4314; A9284; C1751; J0171; J0330; J0610; J0690; J1100; J1170; J1644; J1650; J1815; J2250; J2270; J2370; J2405; J2543; J2550; J2704; J3010; J3475; J3480; J7030; J7131; Q9967